=== PATIENT | male | born 1980 | race African-American/Black ===

== ENCOUNTER 2016-10-03 11:46 | Emergency (ER) | payer OTHER ==
[~2016-10-03] VITALS: Ht 170.2 cm; Wt 72.6 kg
[2016-10-03 11:50] VITALS: BP 116/80
--- NOTE | 2016-10-03 11:52 | ED GENERAL ADULT ---
History of Present Illness General Chief Complaint: Male Genitourinary Problems Stated Complaint: ?STD Source: patient Exam Limitations: no limitations Vital Signs & Intake/Output Vital Signs & Intake/Output Vital Signs Date Time Temp Pulse Resp B/P Pulse O2 O2 Flow FiO2 Ox Delivery Rate 10/03 1150 97.8 75 20 116/80 97 Room Air Allergies Coded Allergies: No Known Allergies (10/03/16) Reconcile Medications No Known Home Medications Triage Note: PT REQUESTS TO BE TESTED FOR TRICH. PT DENIES HAVING ANY SYMPTOMS Triage Nurses Notes Reviewed? yes Onset: Abrupt Duration: day(s): Timing: recent history HPI: 10/03/16 12 PM 36-year-old man presents to the emergency department for exposure to partner with Trichomonas. He denies dysuria or penile discharge. The onset of the symptoms have been abrupt, the duration has been over the past week, the severity is significant as his symptoms required him to come to the emergency department for care. He denies any significant past medical history. Physical exam is completely unremarkable. He has no penile discharge, no rash, no lesions, cremasterics reflex is equal bilaterally. Past History Travel History Traveled to [place] past 21 day No Medical History Any Pertinent Medical History? see below for history Surgical History Surgical History: non-contributory Psychosocial History What is your primary language Persian Tobacco Use: Current Not Daily Daily Tobacco Use Amount/Type: =< 4 Cigarettes daily ETOH Use: occasional use Illicit Drug Use: denies illicit drug use Family History Hx Contributory? No Review of Systems Review of Systems Constitutional: Denies: fever. EENTM: Reports: no symptoms. Respiratory: Reports: no symptoms. Cardiovascular: Reports: no symptoms. GI: Reports: no symptoms. Genitourinary: Reports: see HPI. Musculoskeletal: Reports: no symptoms. Skin: Reports: no symptoms. Neurological/Psychological: Reports: no symptoms. Hematologic/Endocrine: Reports: no symptoms. Physical Exam Physical Exam General Appearance: well developed/nourished, alert, awake, anxious, mild distress Head: atraumatic, normal appearance Eyes: Bilateral: normal appearance. Ears, Nose, Throat: normal ENT inspection Neck: supple Respiratory: no respiratory distress Cardiovascular: regular rate/rhythm Peripheral Pulses: 4+ radial (R), 4+ radial (L) Gastrointestinal: non-tender Back: decreased range of motion Extremities: normal inspection, normal range of motion Neurologic/Psych: no motor/sensory deficits, awake, alert, oriented x 3 Skin: intact, normal color, warm/dry Comments: exam normal Core Measures ACS in differential dx? No CVA/TIA Diagnosis: No Severe Sepsis Present: No Septic Shock Present: No Progress Differential Diagnoses I considered the following diagnoses in my evaluation of the patient: [ Trichomonas, nonspecific urethritis, gonorrhea, chlamydia] Plan of Care: Orders Procedure Date/time Status CHLAMYDIA-GC DNA PROBE 10/03 1159 Active URINALYSIS 10/03 1159 Complete Laboratory Tests 10/03/16 1231: Urine Color YEL, Urine Clarity CLEAR, Urine pH 6.0, Ur Specific [place] 1.025, Urine Protein TRACE H, Urine Ketones 15 H, Urine Nitrite NEG, Urine Bilirubin NEG@ICTO, Urine Urobilinogen 1.0, Ur Leukocyte Esterase NEG, Ur Microscopic SEDIMENT EXAMINED, Urine RBC 1-3, Urine WBC RARE, Urine Mucus FEW, Urine Hemoglobin TRACE-INTACT H, Urine Glucose NEG Microbiology 10/03 1231 URINE ROUT: GC DNA Probe - RECD 10/03 1231 URINE ROUT: Chlamydia DNA Probe (SHELLEY) - RECD Initial ED EKG: none Departure Departure Disposition: HOME OR SELF CARE Condition: Stable Clinical Impression Primary Impression: Urethritis Departure Forms: Customer Survey General Discharge Information Prescriptions: Current Visit Scripts No Known Home Medications Comments The patient was treated with Flagyl, Zithromax, and Rocephin Critical Care Note Critical Care Note Critical Care Time: non-applicable
== END 2016-10-03 12:51 ==
LOC: ERH 11:46
DX: N34.2 Other urethritis (principal)
CPT/HCPCS: 81001; 87491; 87591; 96372; J0456; J0696